=== PATIENT | male | born 1995 | race African-American/Black ===

== ENCOUNTER 2023-03-30 22:37 | Emergency (ER) | payer OTHER, SELFPAY ==
[~2023-03-30 22:37] MED LIST: Iopamidol-370 76% 500 ML MDV (1 ML CHARGE) ONE
[2023-03-30 23:07] LABS: #Eosinphils 0.1 thou/uL (0.0-0.7); #Monocytes 0.5 thou/uL (0.11-0.59); #Neutrophils 4.9 thou/uL (1.40-6.50); %Basophils 0.5 % (0.0-1.0); %Lymphocytes 33.2 % (21.0-51.0); %Monocytes 6.2 % (0.0-10.0); %Neutrophils 58.7 % (42.0-75.0); Hemoglobin 15.2 g/dL (14.0-18.0); Mean Corpuscular HGB CONC 33.3 g/dL (32.0-36.0); Mean Corpuscular Hemoglobin 28.7 pg (27.0-31.0); Mean Corpuscular Volume 86.2 fl (78.0-98.0); Mean Platelet Volume 10.2 fL (7.4-10.4); Platelet Count 297 10x3/uL (130-400); RBC Distribution Width 12.4 % (11.5-14.5); Red Blood Cell (RBC) Count 5.29 mill/uL (4.70-6.10); White Blood Cell (WBC) Count 8.3 10x3/uL (4.8-10.8)
[2023-03-30 23:20] LABS: PTT 29.3 sec (22.9-36.1)
[2023-03-30 23:28] LABS: Anion Gap 15 mmol/L (10-20); Carbon Dioxide 21 mmol/L (22-29); Chloride 108 mmol/L (98-107); Potassium 3.5 mmol/L (3.5-5.1); Sodium 140 mmol/L (136-145)
[2023-03-30 23:29] LABS: Albumin 4.8 g/dL (3.5-5.0); BUN (Urea Nitrogen) 16 mg/dL (8.9-20.6); Bilirubin, Total 0.4 mg/dL (0.2-1.2); Calc. Creatinine Clearance 0 mL/min (70-130); Calcium 9.6 mg/dL (7.8-10.44); Estimated GFR 76; Globulin 3.6 g/dL (2.4-3.5); Glucose 135 mg/dL (70-105); Protein, Total 8.4 g/dL (6.0-8.3)
[2023-03-30 23:30] LABS: ALT (SGPT) 17 U/L (8-55); AST (SGOT) 24 U/L (5-34); Alkaline Phosphatase 64 U/L (40-110)
[2023-03-30] MEDS ORDERED: Ketorolac Tromethamine 30 MG/ML VIAL ONE (23:39)
[2023-03-30] MEDS ORDERED: Ondansetron PF 4 MG/2 ML Vial ONE (23:39)
[2023-03-30] MEDS ORDERED: Bacitracin 1 PK ONE (23:49)
[2023-03-31] MEDS ORDERED: Bacitracin 1 PK ONE (00:11)
[2023-03-31] MEDS ORDERED: Lidocaine 1% w/Epinephrine 1:100K 20 ML VIAL ONE (01:02)
== END 2023-03-31 01:37 | disposition home or self-care (01) ==
LOC: ERS 22:37
DX: S80.811A Abrasion, right lower leg, initial encounter (principal); S30.810A Abrasion of lower back and pelvis, initial encounter; S40.211A Abrasion of right shoulder, initial encounter; S40.812A Abrasion of left upper arm, initial encounter; S80.211A Abrasion, right knee, initial encounter; S60.512A Abrasion of left hand, initial encounter; V20.49XA Other motorcycle driver injured in collision with pedestrian or animal in traffic accident, initial encounter
CPT/HCPCS: 12002; 70450; 71260; 72125; 74177; 80053; 85025; 85610; 85730; 96374; 96375; G0390; J1885; J2405; Q9967